=== PATIENT | female | born 1945 | race Caucasian/White ===

== ENCOUNTER 2016-10-08 16:13 | Inpatient (IN) | payer MEDICARE ==
[~2016-10-08] VITALS: Ht 157.5 cm; Wt 71.3 kg
[2016-10-08] VITALS (8 sets, daily range): BP systolic 114–164; BP diastolic 57–77
[2016-10-08] MEDS ORDERED: IV NORMAL SALINE 1000ML BAG 1,000 ML IV SCH (16:58)
[2016-10-08] MEDS ORDERED: ONDANSETRON PF 4 MG/2 ML VIAL. IV ONE (17:00)
[2016-10-08 17:08] LABS: BASO # 0.1 x10^3/uL (0.0-0.2); BASO % 1 % (0-3); EOS % 1 % (0-3); HEMATOCRIT 40.8 % (36.0-47.0); HEMOGLOBIN 14.1 g/dL (12.0-15.5); LYMPH # 2.2 x10^3/uL (1.0-4.8); LYMPH % 18 % (24-48); MEAN CORPUSCULAR HEMOGLOBIN 32 pg (25-35); MEAN CORPUSCULAR HGB CONC 34 g/dL (31-37); MEAN CORPUSCULAR VOLUME 91 fL (79-100); MONO % 9 % (0-9); NEUT % 70 % (31-73); PLATELET COUNT 366 x10^3/uL (140-400); RED BLOOD COUNT 4.47 x10^6/uL (3.50-5.40)
[2016-10-08] MEDS: fentaNYL PF VIAL 100 MCG/2 ML VIAL IV PRN ×3 (17:13→20:00)
[2016-10-08 17:17] LABS: INR 1.1 (0.8-1.1); PROTHROMBIN TIME PATIENT 13.2 SEC (11.7-14.0)
[2016-10-08 17:20] LABS: CALCIUM 9.4 mg/dL (8.5-10.1); CREATININE 0.7 mg/dL (0.6-1.0); POTASSIUM 3.5 mmol/L (3.5-5.1)
[2016-10-08 17:25] LABS: ALBUMIN 3.8 g/dL (3.4-5.0); ALBUMIN/GLOBULIN RATIO 0.9 (1.0-1.7); TOTAL BILIRUBIN 0.4 mg/dL (0.2-1.0); TOTAL PROTEIN 8.2 g/dL (6.4-8.2)
--- NOTE | 2016-10-08 17:40 | PHYS DOC ---
Past Medical History Past Medical History: No Pertinent History Past Surgical History: Hysterectomy, Other Additional Past Surgical Histo: bilat carpal tunnel, breast biopsy, abdominoplasty, bladder tuck Alcohol Use: None Drug Use: None Adult General Chief Complaint Chief Complaint: HEAD INJURY/TRAUMA HPI HPI Patient is a 71 year old female who presents with complaint of head injury. Patient states that she suffered a head injury 2 days ago. Patient states that she fell off of a horse and landed on her back. Patient states that she lost consciousness briefly. Patient states that she was able to return to her horse and return home. Patient states over the past 2 days she's had worsening left- sided headache and worsening mid back pain. The patient presented to her primary physician's office and had outpatient imaging ordered including head CT , spine x-rays of the cervical, thoracic, and lumbar spine, and pelvis x-ray. The radiologist contacted the patient's primary care office this was after CT had revealed evidence of a subdural hematoma. The patient was thus instructed to come to the emergency department for further evaluation. Patient states that currently she is experiencing headache and back pain but denies any other injuries. Patient rates her pain currently is 8 out of 10. Review of Systems Review of Systems Constitutional: Denies fever or chills [] Eyes: Denies change in visual acuity, redness, or eye pain [] HENT: Denies nasal congestion or sore throat [] Respiratory: Denies cough or shortness of breath [] Cardiovascular: Denies chest pain or edema [] GI: Denies abdominal pain, nausea, vomiting, bloody stools or diarrhea [] : Denies dysuria or hematuria [] Musculoskeletal: Denies back pain or joint pain [] Integument: Denies rash or skin lesions [] Neurologic: Headache, denies focal weakness or sensory changes [] Current Medications Current Medications Current Medications Medications (Trade) Dose Ordered Sig/Hailey Start Time Stop Time Status Last Admin Dose Admin Fentanyl Citrate (Fentanyl 2ml Vial) 50 mcg PRN Q15MIN PRN 10/08/16 17:00 10/08/16 20:39 DC 10/08/16 20:00 50 MCG Ondansetron HCl (Zofran) 4 mg 1X ONCE 10/08/16 17:00 10/08/16 17:01 DC 10/08/16 17:10 4 MG Sodium Chloride 1,000 ml @ 100 mls/hr Q10H 10/08/16 16:58 10/09/16 02:57 10/08/16 17:07 100 MLS/HR Allergies Allergies Allergies Coded Allergies Type Severity Reaction Last Updated Verified tramadol Adverse Reaction Intermediate nausea and vomiting 10/08/16 Yes Physical Exam Physical Exam Constitutional: Alert, afebrile, appears in mild discomfort. [] HENT: Normocephalic, atraumatic, bilateral external ears normal, oropharynx moist, no oral exudates, nose normal. [] Eyes: PERRLA, EOMI, conjunctiva normal, no discharge. [] Neck: Normal range of motion, no tenderness, supple, no stridor. [] Cardiovascular:Heart rate regular rhythm, no murmur [] Lungs & Thorax: Bilateral breath sounds clear to auscultation [] Abdomen: Bowel sounds normal, soft, no tenderness, no masses, no pulsatile masses. [] Skin: Warm, dry, no erythema, no rash. [] Back: Lower thoracic midline tenderness to palpation, no CVA tenderness. [] Extremities: No tenderness, no cyanosis, no clubbing, ROM intact, no edema. [] Neurologic: Alert and oriented X 3, normal motor function, normal sensory function, no focal deficits noted. [] Current Patient Data Vital Signs Vital Signs Date Time Temp Pulse Resp B/P (MAP) Pulse Ox O2 Delivery O2 Flow Rate FiO2 10/08/16 17:13 16 94 Room Air 10/08/16 16:45 94 170/81 (110) 10/08/16 16:24 99.5 99.5 Lab Values Laboratory Tests Test 10/08/16 16:50 White Blood Count 12.0 x10^3/uL (4.0-11.0) H Red Blood Count 4.47 x10^6/uL (3.50-5.40) Hemoglobin 14.1 g/dL (12.0-15.5) Hematocrit 40.8 % (36.0-47.0) Mean Corpuscular Volume 91 fL (79-100) Mean Corpuscular Hemoglobin 32 pg (25-35) Mean Corpuscular Hemoglobin Concent 34 g/dL (31-37) Red Cell Distribution Width 14.0 % (11.5-14.5) Platelet Count 366 x10^3/uL (140-400) Neutrophils (%) (Auto) 70 % (31-73) Lymphocytes (%) (Auto) 18 % (24-48) L Monocytes (%) (Auto) 9 % (0-9) Eosinophils (%) (Auto) 1 % (0-3) Basophils (%) (Auto) 1 % (0-3) Neutrophils # (Auto) 8.4 x10^3uL (1.8-7.7) H Lymphocytes # (Auto) 2.2 x10^3/uL (1.0-4.8) Monocytes # (Auto) 1.1 x10^3/uL (0.0-1.1) Eosinophils # (Auto) 0.2 x10^3/uL (0.0-0.7) Basophils # (Auto) 0.1 x10^3/uL (0.0-0.2) Prothrombin Time 13.2 SEC (11.7-14.0) Prothrombin Time INR 1.1 (0.8-1.1) PTT 33 SEC (24-38) Sodium Level 137 mmol/L (136-145) Potassium Level 3.5 mmol/L (3.5-5.1) Chloride Level 103 mmol/L (98-107) Carbon Dioxide Level 26 mmol/L (21-32) Anion Gap 8 (6-14) Blood Urea Nitrogen 8 mg/dL (7-20) Creatinine 0.7 mg/dL (0.6-1.0) Estimated GFR (Cockcroft-Gault) 83.0 BUN/Creatinine Ratio 11 (6-20) Glucose Level 106 mg/dL (70-99) H Calcium Level 9.4 mg/dL (8.5-10.1) Total Bilirubin 0.4 mg/dL (0.2-1.0) Aspartate Amino Transferase (AST) 25 U/L (15-37) Alanine Aminotransferase (ALT) 28 U/L (14-59) Alkaline Phosphatase 69 U/L (46-116) Total Protein 8.2 g/dL (6.4-8.2) Albumin 3.8 g/dL (3.4-5.0) Albumin/Globulin Ratio 0.9 (1.0-1.7) L Laboratory Tests 10/08/16 16:50 Laboratory Tests 10/08/16 16:50 EKG EKG Not performed [] Radiology/Procedures Radiology/Procedures CT head reviewed by radiologist shows small left-sided parietal subdural hematoma Thoracic spine x-rays reviewed by radiologist shows possible acute T12 compression fracture One view AP chest x-ray interpreted by me: No history, no effusion, normal cardiac silhouette [] Course & Med Decision Making Course & Med Decision Making Pertinent Labs and Imaging studies reviewed. (See chart for details) The patient appears stable at this time. I consulted Dr. Marshall of neurosurgery. He recommended that the patient be admitted for continued observation and repeat head CT imaging to ensure no worsening expansion of patient's subdural hematoma. He also recommended an MRI of the patient's thoracic spine for further evaluation of possible T12 compression fracture. Patient will be admitted to ICU for close monitoring. I spoke with Dr. Cohen who accepted care patient in hospital. Dragon Disclaimer Dragon Disclaimer This electronic medical record was generated, in whole or in part, using a voice recognition dictation system. Departure Departure Impression: Primary Impression: Subdural hematoma Additional Impressions: T12 compression fracture Closed head injury with concussion Disposition: ADMITTED INPATIENT Condition: GUARDED Referrals: MEGHA PHILIP MD (PCP) Problem Qualifiers Additional Impressions: T12 compression fracture Encounter type: initial encounter Qualified Codes: M48.54XA - Collapsed vertebra, not elsewhere classified, thoracic region, initial encounter for fracture Closed head injury with concussion Encounter type: initial encounter Loss of consciousness presence/duration: with LOC of unspecified duration Qualified Codes: S06.0X9A - Concussion with loss of consciousness of unspecified duration, initial encounter KAYLAN MARTINES MD October 08, 2016 17:40
[2016-10-08] MEDS ORDERED: MORPHINE SULFATE 4 MG/ML DISP.SYRIN. IV PRN (17:45)
[2016-10-08] MEDS ORDERED: ACETAMINOPHEN 325 MG TABLET. PO PRN (17:45)
[2016-10-08] MEDS ORDERED: ONDANSETRON PF 4 MG/2 ML VIAL. IV PRN (17:45)
[2016-10-08 20:04] LABS: BILIRUBIN,URINE NEGATIVE (NEG); GLUCOSE,URINE NEGATIVE (NEG); NITRITE,URINE NEGATIVE (NEG); PROTEIN,URINE NEGATIVE (NEG-TRACE); UROBILINOGEN,URINE 0.2 mg/dL (0.2 mg/dL)
[2016-10-08] MEDS ORDERED: SIMV40TA3 PO (20:11)
[2016-10-08 20:33] LABS: BACTERIA,URINE FEW /HPF (0-FEW); RBC,URINE OCC /HPF (0-2); SQUAMOUS EPITHELIAL CELL,UR OCC /LPF; WBC,URINE OCC /HPF (0-4)
[2016-10-08] MEDS ORDERED: fentaNYL PF VIAL 100 MCG/2 ML VIAL IV PRN ×2 (20:45)
[2016-10-08] MEDS ORDERED: SIMVASTATIN 40 MG TABLET. PO SCH (21:00)
[2016-10-08] MEDS ORDERED: DEXAMETHASONE SOD PHOS 4 MG/ML VIAL IV ONE (21:15)
[2016-10-08] MEDS: oxyCODONE IR 5 MG TABLET PO PRN (21:30)
[2016-10-08] MEDS: SENNOSIDES/DOCUSATE 8.6/50MG TABLET. PO SCH (21:32)
--- NOTE | 2016-10-08 23:34 | HP ---
ADMIT DATE: 10/08/2016 CHIEF COMPLAINT: Headache. HISTORY OF PRESENT ILLNESS: The patient is a 71-year-old fairly healthy woman who presented to the Emergency Room 2 days after a fall from a horse with 5 or 6 minutes of unconsciousness. She relates that after she was thrown and came back to, she actually managed to get back up on horse and ride home. She had a severe headache in the front as well as in the back of her head, throbbing in nature, getting worse and worse. Although she had contemplated going to the Emergency Room for a couple of days, she actually saw her PCP today, multiple CTs including head were obtained. CT of the head actually showed a "acute extraaxial hematoma, which appears to be predominantly subdural in location seen lateral to the left temporal lobe extending superiorly measuring 4 mm in its greatest transverse diameter." There is mild associated mass effect without evidence of midline shift. The patient was promptly referred to the Emergency Room and is now admitted for further management. Dr. Marshall has been consulted. PAST MEDICAL HISTORY: Hypercholesterolemia. PAST SURGICAL HISTORY: Status post hysterectomy, bladder tuck, bilateral carpal tunnel and breast biopsy (benign). FAMILY HISTORY: Multiple cancers in family including breast and colon. SOCIAL HISTORY: Lives with family. No toxic habits. ALLERGIES: TRAMADOL. MEDICATIONS: Statin. REVIEW OF SYSTEMS: Positive for headache as per HPI. Does have some dizziness when turning her head, neck hurts quite a bit as well, worse with movement, although she is able to rotate head completely from side to side. Rest of organ system review is negative. PHYSICAL EXAMINATION: VITAL SIGNS: From today shows a blood pressure of 135/64, heart rate of 100, respiratory rate at 22. She is afebrile. GENERAL: This is a 71-year-old woman, alert and oriented, in no acute distress. HEENT: Shows no scleral icterus. NECK: Supple, without any lymphadenopathy. LUNGS: Clear. HEART: Regular rate and rhythm. ABDOMEN: Positive bowel sounds, soft, nontender. EXTREMITIES: Show no edema. NEUROLOGIC: Shows cranial nerves 2-12 grossly intact. Muscle strength 5/5 x 4. LABORATORY DATA: CBC with a WBC of 12, hemoglobin 14.1, platelets of 333. Chemistries with a BUN and creatinine of 8 and 0.8, normal electrolytes, normal LFTs. Coags within normal. IMAGING: CT of the head with subdural hematoma on the left temporal lobe. Spine x-rays of the cervical, thoracic and lumbar spine and pelvis show an age indeterminate compression fracture at the superior endplate of T12. ASSESSMENT AND PLAN: The patient is a 71-year-old woman who presented 2 days after a fall from horse with head injury and loss of consciousness. She has been diagnosed with SDH admitted for further monitoring. Plan would be to repeat a CT in 24 hours. In the meantime, we will continue pain control with IV and/or p.o. narcotics, fentanyl and oxycodone has been ordered, given mass effect noted on CT, I give her a dose of Decadron today as well. Second issue is a potential new compression fracture at T12, possibly sustained during her fall. We will obtain MRI to elucidate. Pain currently is actually not too bad in her back, cervical spine and head are significantly more effective. We will get heating pad to neck as well. The patient has mild nausea, Zofran will be made available for her. For multiple constipatory medications that have been ordered here in the hospital, we will start senna plus as well until she is narcotic free. VENTURA PEREZ MD DR: UR/nts JOB#: [id number] / [id number] MEGHA Butterfield MD MTDFatoumata
[2016-10-09] VITALS (14 sets, daily range): BP systolic 93–137; BP diastolic 47–71
[2016-10-09] MEDS: oxyCODONE IR 5 MG TABLET PO PRN ×2 (01:12→11:23)
--- NOTE | 2016-10-09 01:12 | ACF ---
Admission Forms Criteria TRAUMATIC BRAIN INJURY, NONSURGICAL TREATMENT Clinical Indications for Admission to Inpatient Care (Place 'X' for any and all applicable criteria): Admission is indicated for head injury and ANY ONE of the following(1)(2)(3)(4)( 5)(6)(7): [ ]I. Postresuscitation or presenting Angela coma scale (GCS) score of less than 13 [ ]II. New focal signs on neurologic examination [ ]III. Persistently diminished level of consciousness (eg, lethargy, disorientation) [ ]IV. Penetrating wounds [ ]V. Evidence of increased ICP (eg, papilledema, persistent vomiting) [ ]. CSF leak(7)(8) [ ]VII. Significant extracranial injuries [X ]VIII. Intracranial pathology on CT scan(6) [ ]IX. Inpatient admission required rather than observation care (Use Traumatic Brain Injury, Nonsurgical Treatment: Observation Care Criteria as appropriate) because of ANY ONE of the following: [ ]a) Intracranial infection identified(8) [ ]b) Cerebral vasospasm identified or suspected [ ]c) Recurrent seizures(9) [ ]d) Surgical intervention or complex wound care required(7)(10) [ ]e) Hemodynamic instability [ ]f) Hypertension requiring inpatient treatment [ ]g) Continuous IV infusion of anticoagulant, platelet inhibitor, vasoactive, or antiarrhythmic Medication(11)(12) [ ]h) Cerebral bleeding, hydrocephalus, or vasospasm monitoring (13) [ ]i ) Other condition, treatment or monitoring requiring inpatient admission Extended stay beyond goal length of stay may be needed for(23)(24) [ ]a) Severe injury [ ]b) Ventilatory failure [ ]c) Intracranial infection [ ]d) Increased ICP [ ]e) Cerebral vasospasm [ ]f) New-onset seizures [ ]g) Severe neurologic deficits [ ]h) Surgical intervention The original [employer] content created by [employer] has been revised. The portions of the content which have been revised are identified through the use of italic text or in bold, and [facility] has neither reviewed nor approved the modified material. All other unmodified content is copyright [employer]. Please see references footnoted in the original [employer] edition 2016 Admission Criteria Met?: Yes CHATO FRAZIER October 09, 2016 01:12
[2016-10-09] MEDS: IV NORMAL SALINE 1000ML BAG 1,000 ML IV SCH ×2 (02:16→03:37)
[2016-10-09 05:56] LABS: BASO % 0 % (0-3); EOS % 0 % (0-3); HEMATOCRIT 39.3 % (36.0-47.0); HEMOGLOBIN 13.1 g/dL (12.0-15.5); LYMPH # 0.9 x10^3/uL (1.0-4.8); LYMPH % 10 % (24-48); MEAN CORPUSCULAR HEMOGLOBIN 31 pg (25-35); MEAN CORPUSCULAR HGB CONC 33 g/dL (31-37); MEAN CORPUSCULAR VOLUME 92 fL (79-100); MONO % 3 % (0-9); NEUT % 88 % (31-73); PLATELET COUNT 333 x10^3/uL (140-400); RED BLOOD COUNT 4.27 x10^6/uL (3.50-5.40); RED CELL DISTRIBUTION WIDTH 13.9 % (11.5-14.5); WHITE BLOOD COUNT 9.2 x10^3/uL (4.0-11.0)
[2016-10-09 06:11] LABS: CREATININE 0.7 mg/dL (0.6-1.0); POTASSIUM 4.4 mmol/L (3.5-5.1)
[2016-10-09 07:52] LABS: PLT ESTIMATE ADEQUATE (ADEQUATE)
--- NOTE | 2016-10-09 08:38 | RAD ---
Portable chest, 10/08/2016: History: Fall from horse The heart size and pulmonary vascularity are normal. No pulmonary infiltrate is seen. There is no evidence of pleural fluid or pneumothorax. IMPRESSION: No acute cardiopulmonary abnormality is detected.
[2016-10-09] MEDS: SENNOSIDES/DOCUSATE 8.6/50MG TABLET. PO SCH (09:27)
--- NOTE | 2016-10-09 09:45 | PDOC ---
Provider Note Provider Note patient seen and examined acute extraaxial hematoma, which appears to be predominantly subdural in location seen lateral to the left temporal lobe extending superiorly measuring 4 mm in its greatest transverse diameter. There is mild associated mass effect without evidence of midline shift. Thoracic spine x-rays shows possible acute T12 compression fracture neuro intact Follow CT head and thoracic MRI pending d/w RN full consult to follow MARK ARCEO MD October 09, 2016 09:45
--- NOTE | 2016-10-09 09:53 | RAD ---
CT of the head without contrast, 10/09/2016: History: Follow-up subdural hematoma Comparison is made to a study from 10/08/2016. Again noted is a thin extra-axial area of increased density over the left temporal lobe compatible with a recent subdural hematoma. Is unchanged in size measuring approximately 4 mm in greatest thickness. There is no significant underlying mass effect. The midline structures are not shifted. The ventricles are within normal limits in size. No intra-axial hemorrhage is evident. The cerebellum and brainstem are unremarkable. No new abnormality is detected. IMPRESSION: Stable small left subdural hematoma PQRS Compliance Statement: One or more of the following individualized dose reduction techniques were utilized for this examination: 1. Automated exposure control 2. Adjustment of the mA and/or kV according to patient size 3. Use of iterative reconstruction technique
--- NOTE | 2016-10-09 09:58 | PDOC ---
PROGRESS NOTES Chief Complaint Chief Complaint SDH ASSESSMENT AND PLAN: 1. SDH: clinically improved. awaiting rpt. CT brain. appreciate Dr Marshall' s input 2. Concussion: REYES improved. norco PRN 3. T12 fx: age indeterninate. MRI today 4. Dispo: if scans stable, D/C later today. History of Present Illness History of Present Illness REYES much improved. nausea with getting up Vitals Vitals Vital Signs Date Time Temp Pulse Resp B/P (MAP) Pulse Ox O2 Delivery O2 Flow Rate FiO2 10/09/16 06:00 64 21 93/47 (62) 90 Nasal Cannula 3.0 10/09/16 04:00 98.8 98.8 Physical Exam General: Alert, Oriented X3, Cooperative, No acute distress Heart: Regular rate Lungs: Clear Abdomen: Normal bowel sounds Extremities: No clubbing, No edema Skin: No rashes Labs LABS Laboratory Tests Test 10/08/16 16:50 10/08/16 19:20 10/09/16 05:40 White Blood Count 12.0 x10^3/uL (4.0-11.0) 9.2 x10^3/uL (4.0-11.0) Red Blood Count 4.47 x10^6/uL (3.50-5.40) 4.27 x10^6/uL (3.50-5.40) Hemoglobin 14.1 g/dL (12.0-15.5) 13.1 g/dL (12.0-15.5) Hematocrit 40.8 % (36.0-47.0) 39.3 % (36.0-47.0) Mean Corpuscular Volume 91 fL (79-100) 92 fL (79-100) Mean Corpuscular Hemoglobin 32 pg (25-35) 31 pg (25-35) Mean Corpuscular Hemoglobin Concent 34 g/dL (31-37) 33 g/dL (31-37) Red Cell Distribution Width 14.0 % (11.5-14.5) 13.9 % (11.5-14.5) Platelet Count 366 x10^3/uL (140-400) 333 x10^3/uL (140-400) Neutrophils (%) (Auto) 70 % (31-73) 88 % (31-73) Lymphocytes (%) (Auto) 18 % (24-48) 10 % (24-48) Monocytes (%) (Auto) 9 % (0-9) 3 % (0-9) Eosinophils (%) (Auto) 1 % (0-3) 0 % (0-3) Basophils (%) (Auto) 1 % (0-3) 0 % (0-3) Neutrophils # (Auto) 8.4 x10^3uL (1.8-7.7) 8.0 x10^3uL (1.8-7.7) Lymphocytes # (Auto) 2.2 x10^3/uL (1.0-4.8) 0.9 x10^3/uL (1.0-4.8) Monocytes # (Auto) 1.1 x10^3/uL (0.0-1.1) 0.2 x10^3/uL (0.0-1.1) Eosinophils # (Auto) 0.2 x10^3/uL (0.0-0.7) 0.0 x10^3/uL (0.0-0.7) Basophils # (Auto) 0.1 x10^3/uL (0.0-0.2) 0.0 x10^3/uL (0.0-0.2) Prothrombin Time 13.2 SEC (11.7-14.0) Prothromb Time International Ratio 1.1 (0.8-1.1) Activated Partial Thromboplast Time 33 SEC (24-38) Sodium Level 137 mmol/L (136-145) 139 mmol/L (136-145) Potassium Level 3.5 mmol/L (3.5-5.1) 4.4 mmol/L (3.5-5.1) Chloride Level 103 mmol/L (98-107) 104 mmol/L (98-107) Carbon Dioxide Level 26 mmol/L (21-32) 26 mmol/L (21-32) Anion Gap 8 (6-14) 9 (6-14) Blood Urea Nitrogen 8 mg/dL (7-20) 6 mg/dL (7-20) Creatinine 0.7 mg/dL (0.6-1.0) 0.7 mg/dL (0.6-1.0) Estimated GFR (Cockcroft-Gault) 83.0 83.0 BUN/Creatinine Ratio 11 (6-20) Glucose Level 106 mg/dL (70-99) 142 mg/dL (70-99) Calcium Level 9.4 mg/dL (8.5-10.1) 9.0 mg/dL (8.5-10.1) Total Bilirubin 0.4 mg/dL (0.2-1.0) Aspartate Amino Transf (AST/SGOT) 25 U/L (15-37) Alanine Aminotransferase (ALT/SGPT) 28 U/L (14-59) Alkaline Phosphatase 69 U/L (46-116) Total Protein 8.2 g/dL (6.4-8.2) Albumin 3.8 g/dL (3.4-5.0) Albumin/Globulin Ratio 0.9 (1.0-1.7) Urine Color Yellow Urine Clarity Clear Urine pH 6.0 Urine Specific Moro 1.010 Urine Protein Negative mg/dL (NEG-TRACE) Urine Glucose (UA) Negative mg/dL (NEG) Urine Ketones (Stick) Negative mg/dL (NEG) Urine Blood Trace (NEG) Urine Nitrite Negative (NEG) Urine Bilirubin Negative (NEG) Urine Urobilinogen Dipstick 0.2 mg/dL (0.2 mg/dL) Urine Leukocyte Esterase Negative (NEG) Urine RBC Occ /HPF (0-2) Urine WBC Occ /HPF (0-4) Urine Squamous Epithelial Cells Occ /LPF Urine Bacteria Few /HPF (0-FEW) Segmented Neutrophils % 86 % (35-66) Band Neutrophils % 1 % (0-9) Lymphocytes % 12 % (24-48) Monocytes % 1 % (0-10) Platelet Estimate Adequate (ADEQUATE) VENTURA PEREZ MD October 09, 2016 09:58
--- NOTE | 2016-10-09 11:07 | RAD ---
PROCEDURE MRI of the thoracic spine without contrast 10/09/2016 HISTORY Fall from horse 3 days ago with mid back pain. TECHNIQUE Unenhanced T1 weighted, T2 weighted and inversion recovery sagittal and T1 weighted and T2 weighted axial images of the thoracic spine were obtained. FINDINGS Comparison is made to radiographs of the thoracic spine dated 10/08/2016. Very mild S-shaped curvature of the thoracolumbar spine is seen. Degenerative signal changes are seen involving all of the discs of the thoracic spine. Degenerative signal changes are seen within the marrow surrounding these discs. A 9 millimeter hemangioma is seen involving the T6 vertebral body. Schmorl's node formation is seen involving the superior and inferior endplates of the T12 vertebral body and the inferior endplate of the T11 vertebral body. There is no MRI evidence of an acute compression fracture involving the thoracic vertebrae. No area of abnormal signal intensity is seen involving the thoracic spinal cord. On the axial images degenerative changes are seen consisting of mild generalized disc bulges and degenerative changes involving the facet joints. Superimposed right paracentral focal disc protrusions are seen at T5-6 and T8-9. These measure 2 to 3 millimeters in AP diameter. These findings do not result in significant central spinal canal or neural foraminal stenosis. IMPRESSION 1. Degenerative changes are seen throughout the thoracic spine as outlined above. These findings do not result in significant central spinal canal or neural foraminal stenosis. 2. There is no MRI evidence of an acute compression fracture is seen involving the thoracic vertebrae. Electronically signed by: Ti Lei MD (October 09, 2016 11:05:57)
== END 2016-10-09 14:20 | disposition home or self-care (01) | DRG 86 ==
LOC: ER 16:13 → 1 WEST ICU 17:19
PROVIDERS: ADMIT Internal Medicine Hematology & Oncology; ATTEND Internal Medicine Hematology & Oncology
DX: S06.5X1A Traumatic subdural hemorrhage with loss of consciousness of 30 minutes or less, initial encounter (principal); M48.54XA Collapsed vertebra, not elsewhere classified, thoracic region, initial encounter for fracture; E78.00 Pure hypercholesterolemia, unspecified; M54.9 Dorsalgia, unspecified; V80.010A Animal-rider injured by fall from or being thrown from horse in noncollision accident, initial encounter; Y92.89 Other specified places as the place of occurrence of the external cause; Y99.8 Other external cause status; Z90.710 Acquired absence of both cervix and uterus; Y93.52 Activity, horseback riding; S06.0X1A Concussion with loss of consciousness of 30 minutes or less, initial encounter
CPT/HCPCS: 36415; 70450; 71010; 72040; 72072; 72100; 72146; 72170; 80048; 80053; 81001; 85007; 85027; 85610; 85730; 86850; 86900; 86901; 87641; 96361; 96374; J1100; J2405; J3010; J7030; 99285-25

== ENCOUNTER → 2016-10-16 | Outpatient (CLI) | payer MEDICARE ==
[2016-10-09 13:00] VITALS: BP 114/62
[~2016-10-16] MED LIST: SIMV40TA3 PO
--- NOTE | 2016-10-16 14:04 | KCIC ---
Indication: Subdural hematoma, follow-up Technique: Noncontrast CT head was obtained. Comparison is from 8 days ago. One or more of the following individualized dose reduction techniques were utilized for this examination: 1. Automated exposure control 2. Adjustment of the mA and/or kV according to patient size 3. Use of iterative reconstruction technique Findings: Subdural hematoma overlying the left temporal and frontal lobes is minimally increased in size. It now measures up to 5 mm short axis compared to 3-4 mm on prior. It extends further cranial along the frontal lobe compared to prior study. This appears acute to subacute, has a hyperdense component dependently and inferiorly and a relatively hypodense component more superiorly. Midline shift is 2 to 3 mm, there is no ventricular entrapment. There is prominence of the ventricles and sulci. There is minimal probable small vessel ischemic disease. There is no CT evidence of acute infarct. There is no depressed skull fracture. The paranasal sinuses are clear with the exception of minimal frontal mucosal thickening. Mastoid air cells are clear. IMPRESSION: Slight increase in size of the subdural hematoma on the left when compared to prior exam. Electronically signed by: Josef Castro MD (10/16/2016 2:00 PM)
== END | disposition home or self-care (01) ==
LOC: KCIC CT 13:38
PROVIDERS: ATTEND Neurological Surgery
DX: I62.00 Nontraumatic subdural hemorrhage, unspecified (principal)
CPT/HCPCS: 70450

== ENCOUNTER → 2016-10-23 | Outpatient (CLI) | payer MEDICARE ==
[2016-10-09 13:00] VITALS: BP 114/62
--- NOTE | 2016-10-23 11:09 | KCIC ---
Indication: Follow-up subdural hematoma. Axial imaging through the brain was performed without contrast. One or more of the following individualized dose reduction techniques were utilized for this examination: 1. Automated exposure control 2. Adjustment of the mA and/or kV according to patient size 3. Use of iterative reconstruction technique Comparison is made with prior head CT from 10/16/2016. The ventricular size is stable. The previously noted mixed density subdural hematoma along the left frontoparietal convexity shows some slight decrease in size. Overall thickness is approximately 4 mm compared with approximately 5 mm on prior. There is no mass effect or midline shift. The cisterns are patent. The visualized paranasal sinuses are clear. IMPRESSION: Normal evolution of the left cerebral convexity subdural hematoma when compared with exam one week earlier. Subdural measures slightly smaller in thickness. No mass effect or new hemorrhage is detected. Electronically signed by: Shamir Luis MD (10/23/2016 11:05 AM)
== END | disposition home or self-care (01) ==
LOC: KCIC CT 10:10
PROVIDERS: ATTEND Neurological Surgery
DX: S06.5X9D Traumatic subdural hemorrhage with loss of consciousness of unspecified duration, subsequent encounter (principal); X58.XXXD Exposure to other specified factors, subsequent encounter
CPT/HCPCS: 70450

== ENCOUNTER → 2016-11-06 | Outpatient (CLI) | payer MEDICARE ==
[2016-10-09 13:00] VITALS: BP 114/62
--- NOTE | 2016-11-06 15:04 | KCIC ---
CT HEAD WO CONTRAST Indication: Follow-up subdural hematoma. Comparison: October 23, 2016 Contrast: None Exposure: One or more of the following individualized dose reduction techniques were utilized for this examination: 1. Automated exposure control 2. Adjustment of the mA and/or kV according to patient size 3. Use of iterative reconstruction technique. Findings: The previously identified left frontal subdural collection has diminished in size and is difficult to identify on today's study no new abnormal extra-axial fluid collection is identified. No mass effect or midline shift. No acute intracranial hemorrhage. Ventricles and sulci are stable. Partially included sinuses are clear. Orbits appear unremarkable. No evidence of acute skeletal abnormality. IMPRESSION: The previously seen left subdural hematoma has essentially resolved. No new acute intracranial abnormality. Electronically signed by: Jose Ramon Aden MD (11/06/2016 2:58 PM)
== END | disposition home or self-care (01) ==
LOC: KCIC CT 08:04
PROVIDERS: ATTEND Neurological Surgery
DX: S06.5X9A Traumatic subdural hemorrhage with loss of consciousness of unspecified duration, initial encounter (principal); X58.XXXA Exposure to other specified factors, initial encounter; Y93.89 Activity, other specified; Y92.89 Other specified places as the place of occurrence of the external cause; Y99.8 Other external cause status
CPT/HCPCS: 70450

== ENCOUNTER → 2017-12-18 | Outpatient (CLI) | payer MEDICARE | END | disposition home or self-care (01) | LOC: KCIC MRI 14:41 | DX: S83.512A Sprain of anterior cruciate ligament of left knee, initial encounter (principal); S83.282A Other tear of lateral meniscus, current injury, left knee, initial encounter; M22.42 Chondromalacia patellae, left knee; M71.22 Synovial cyst of popliteal space [Baker], left knee; M25.462 Effusion, left knee; E78.00 Pure hypercholesterolemia, unspecified; X58.XXXA Exposure to other specified factors, initial encounter; Y93.89 Activity, other specified; Y92.89 Other specified places as the place of occurrence of the external cause; Y99.8 Other external cause status | CPT/HCPCS: 73721 ==

== ENCOUNTER → 2018-10-23 | Outpatient (CLI) | payer MEDICARE ==
[2016-10-09 13:00] VITALS: BP 114/62
--- NOTE | 2018-10-23 14:18 | KCIC ---
MRI Lumbar Spine without contrast History: Lumbar back pain, pain into the right hip and leg Technique: Multiplanar, multi sequential noncontrast MR imaging was performed of the lumbar spine. Comparison: October 09, 2016 MRI thoracic spine exam, no previous dedicated lumbar spine MRI exam available Findings: There is a similar degree of superior and inferior T12 endplate irregularity and Schmorl's nodes, small inferior T11 Schmorl's node. Lumbar vertebral body stature is overall maintained, no edema suggestive of acute compression fracture. There is grade 1 anterior spondylolisthesis at L4-5 and to lesser degree at L3-4 and L5-S1. Conus terminates at the superior aspect of L2. There is moderate degenerative disc disease at L3-4 and L4-5 and to lesser degree at L5-S1 and L1-2, mild disc desiccation L2-3. 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 There is a small T2 hyperintense lesion of the limited visualized right kidney about 0.9 cm, statistically more likely a cyst. T10-11: There is facet degenerative change contributing to likely mild posterior neural foramina compromise bilaterally. L1-L2: There is minimal buckling of the ligamentum flavum and facet degenerative change. There is a shallow posterior bulge 1 to 2 mm AP without significant spinal stenosis. Neural foramina are adequate. L2-L3: There is moderate facet degenerative change and mild buckling of the ligamentum flavum. Spinal canal and neural foramina are adequate. L3-L4: There is mild to moderate facet degenerative change and mild buckling of the ligamentum flavum. There is mild partial uncovering of the posterior aspect of the disc and shallow bulge. Neural foramina are overall adequate. There is very mild narrowing of the far lateral recesses, central canal adequate. L4-L5: There is moderate to severe facet degenerative change and mild buckling of the ligamentum flavum. There is mild partial uncovering of the posterior aspect of the disc due to spondylolisthesis. There is fairly severe narrowing of the far lateral recesses bilaterally at location of contacted descending L5 nerve roots, moderate narrowing of the central canal. There is mild narrowing of the right neural foramen, left neural foramen adequate. L5-S1: There is moderate facet hypertrophic change. There is a shallow protrusion greater in the right lateral recess about 2 mm AP. There is moderate narrowing of the spinal canal on developmental basis, protrusion contacting the descending right S1 nerve root at which there is moderate to severe right lateral recess stenosis. Neural foramina are adequate. Impression: 1. There is fairly severe narrowing of the far lateral recesses bilaterally at L4-5 at location of the descending L5 nerve roots, moderate narrowing of the central canal at this level. There is narrowing of the spinal canal at L5-S1 mostly on developmental basis although also shallow protrusion in the right lateral recess contacting the descending right S1 nerve root. 2. There is multilevel grade 1 anterior spondylolisthesis L3-4 through L5-S1 greatest at L4-5, multilevel facet degenerative change. 3. There is multilevel degenerative disc disease greatest L3-4 and L4-5. Electronically signed by: Jeremiah Virk MD (10/23/2018 2:16 PM) [facility]
== END | disposition home or self-care (01) ==
LOC: KCIC MRI 12:48
PROVIDERS: ATTEND Family Medicine
DX: M43.17 Spondylolisthesis, lumbosacral region (principal); M51.17 Intervertebral disc disorders with radiculopathy, lumbosacral region; M48.07 Spinal stenosis, lumbosacral region; M89.38 Hypertrophy of bone, other site; M51.44 Schmorl's nodes, thoracic region
CPT/HCPCS: 72148

== ENCOUNTER → 2018-11-18 | Outpatient (CLI) | payer MEDICARE ==
[2016-10-09 13:00] VITALS: BP 114/62
--- NOTE | 2018-11-18 17:17 | KCIC ---
EXAM: Lateral neutral, lateral flexion and lateral extension views of the lumbar spine DATE: 11/18/2018 12:00 AM INDICATION: Spondylolisthesis. History of back injuries from horse COMPARISON: No Prior FINDINGS: For the purposes of this report there are 5 nonrib-bearing lumbar-type vertebral bodies. There is approximately 8 mm anterolisthesis of L4 on L5 on the neutral image, 7 mm anterolisthesis of L4 on L5 on the extension image and 9 mm anterolisthesis on the flexion image. Mild deformity of the superior endplate of T12, chronic in appearance. Lumbar vertebral body heights are grossly preserved. Mild and L3-4, L4-5 and L5-S1 disc height loss. Moderate facet degenerative changes at L3-4 and below. Vascular calcifications are seen. IMPRESSION: Anterolisthesis of L4 on L5, 7 mm on the extension image, 8 mm on the neutral image and 9 mm on the flexion image. Electronically signed by: Frankie Camp MD (11/18/2018 5:14 PM) [facility]
== END | disposition home or self-care (01) ==
LOC: KCIC 12:19
PROVIDERS: ATTEND Neurological Surgery
DX: M43.16 Spondylolisthesis, lumbar region (principal); M47.816 Spondylosis without myelopathy or radiculopathy, lumbar region; M43.8X6 Other specified deforming dorsopathies, lumbar region; I70.90 Unspecified atherosclerosis
CPT/HCPCS: 72100

== ENCOUNTER → 2018-12-10 | Outpatient (CLI) | payer MEDICARE ==
[2016-10-09 13:00] VITALS: BP 114/62
--- NOTE | 2018-12-10 15:23 | KCIC ---
Indication: Osteoporosis. TECHNIQUE: DEXA scan COMPARISON: None FINDINGS: The bone mineral density in the left femoral neck measures 0.804 g percent meters squared with T score of -1.1. The bone mineral density in the lumbar spine from L1-L4 measures 1.205 g/sq cm with T score of 1.4. IMPRESSION: Mild osteopenia in the left femoral neck. Normal bone mineral density in the lumbar spine. Electronically signed by: New Mcarthur DO (12/10/2018 3:20 PM) [facility]
== END | disposition home or self-care (01) ==
LOC: KCIC DEXA 10:45
PROVIDERS: ATTEND Nurse Practitioner Family
DX: Z13.820 Encounter for screening for osteoporosis (principal); M85.88 Other specified disorders of bone density and structure, other site; M81.0 Age-related osteoporosis without current pathological fracture; Z90.710 Acquired absence of both cervix and uterus
CPT/HCPCS: 77080